=== PATIENT | female | born 1965 | race Caucasian/White ===

== ENCOUNTER → 2018-07-04 | Outpatient (CLI) | payer BC ==
[2018-07-04 11:15] LABS: EOS # 0.3 (0.04-0.40); EOS % 3.2 % (1.0-5.0); HEMATOCRIT 45.9 % (37.0-47.0); HEMOGLOBIN 14.7 g/dL (12.5-16.0); LYMPH# 2.3 (1.50-4.00); MEAN CELL VOLUME 94 fl (78-100); MEAN CORPUSCULAR HEMOGLOBIN 30 pg (27-31); MEAN CORPUSCULAR HGB CONC 32 g/dL (33-37); MEAN PLATELET VOLUME 10.2 fl (7.4-10.4); MONO # 0.8 (0.20-0.80); NEU # 6.1 (1.40-6.50); PLATELET COUNT 308 K/mm3 (130-400); RED BLOOD COUNT 4.88 M/mm3 (4.10-5.30); RED CELL DISTRIBUTION WIDTH 13.6 % (11.5-14.5); WHITE BLOOD COUNT 9.6 K/mm3 (4.8-10.8)
[2018-07-04 11:29] LABS: ALBUMIN 4.2 g/dL (3.5-5.0); CALCIUM 9.7 mg/dL (8.4-10.2); POTASSIUM 4.5 mmol/L (3.6-5.0); TOTAL BILIRUBIN 0.6 mg/dL (0.2-1.3); TOTAL PROTEIN 7.3 g/dL (6.3-8.2)
== END ==
LOC: LAB 10:45
PROVIDERS: Family Medicine
DX: Z01.419 Encounter for gynecological examination (general) (routine) without abnormal findings (principal)

== ENCOUNTER → 2020-12-23 | Outpatient (CLI) | payer BC ==
[2020-12-23 10:17] LABS: EOS # 0.1 (0.04-0.40); EOS % 1.6 % (1.0-5.0); HEMATOCRIT 44.9 % (37.0-47.0); MEAN CELL VOLUME 94 fl (78-100); MEAN CORPUSCULAR HEMOGLOBIN 29 pg (27-31); MEAN CORPUSCULAR HGB CONC 31 g/dL (33-37); MEAN PLATELET VOLUME 10.1 fl (7.4-10.4); MONO # 0.7 (0.20-0.80); NEU # 4.1 (1.40-6.50); PLATELET COUNT 299 K/mm3 (130-400); RED BLOOD COUNT 4.79 M/mm3 (4.10-5.30); RED CELL DISTRIBUTION WIDTH 13.2 % (11.5-14.5)
[2020-12-23 10:23] LABS: ALBUMIN 3.9 g/dL (3.5-5.0); POTASSIUM 4.2 mmol/L (3.5-5.1)
[2020-12-23 10:24] LABS: CALCIUM 9.2 mg/dL (8.3-10.5)
[2020-12-23 10:25] LABS: TOTAL PROTEIN 6.9 g/dL (6.4-8.3)
[2020-12-23 10:27] LABS: TOTAL BILIRUBIN 0.4 mg/dL (0.2-1.2)
== END ==
LOC: LAB 09:14
PROVIDERS: Family Medicine
DX: Z00.00 Encounter for general adult medical examination without abnormal findings (principal); E78.5 Hyperlipidemia, unspecified; E55.9 Vitamin D deficiency, unspecified

== ENCOUNTER → 2021-12-09 | Outpatient (CLI) | payer BC ==
[2021-12-09 14:31] LABS: BASO # 0.04 K/mm3 (0.02-0.10); EOS # 0.27 K/mm3 (0.04-0.40); EOS % 2.7 % (1.0-5.0); HEMATOCRIT 43.8 % (37.0-47.0); LYMPH# 2.32 K/mm3 (1.50-4.00); MEAN CELL VOLUME 95 fl (78-100); MEAN CORPUSCULAR HEMOGLOBIN 30 pg (27-31); MEAN CORPUSCULAR HGB CONC 32 g/dL (33-37); MEAN PLATELET VOLUME 9.5 fl (7.4-10.4); MONO # 0.64 K/mm3 (0.20-0.80); NEU # 6.59 K/mm3 (1.40-6.50); PLATELET COUNT 308 K/mm3 (130-400); RED CELL DISTRIBUTION WIDTH 13.1 % (11.5-14.5); WHITE BLOOD COUNT 9.9 K/mm3 (4.8-10.8)
[2021-12-09 14:46] LABS: POTASSIUM 4.2 mmol/L (3.5-5.1)
[2021-12-09 14:47] LABS: ALBUMIN 4.1 g/dL (3.5-5.0)
[2021-12-09 14:48] LABS: CALCIUM 9.6 mg/dL (8.3-10.5)
[2021-12-09 14:49] LABS: TOTAL PROTEIN 7.1 g/dL (6.4-8.3)
[2021-12-09 14:51] LABS: TOTAL BILIRUBIN 0.4 mg/dL (0.2-1.2)
== END ==
LOC: LAB 14:13
PROVIDERS: Family Medicine
DX: Z00.00 Encounter for general adult medical examination without abnormal findings (principal); E78.5 Hyperlipidemia, unspecified; E55.9 Vitamin D deficiency, unspecified; E66.9 Obesity, unspecified; R05.3 Chronic cough

== ENCOUNTER → 2021-12-10 | Outpatient (CLI) | payer BC | LOC: RAD 09:00 | DX: J84.10 Pulmonary fibrosis, unspecified (principal) | CPT/HCPCS: Q9967 ==

== ENCOUNTER → 2022-07-13 | Outpatient (CLI) | payer OTHER, BC ==
[2022-07-13 13:46] LABS: BASO # 0.03 K/mm3 (0.02-0.10); EOS # 0.28 K/mm3 (0.04-0.40); EOS % 3.3 % (1.0-5.0); HEMATOCRIT 38.6 % (37.0-47.0); HEMOGLOBIN 12.3 g/dL (12.5-16.0); LYMPH# 2.22 K/mm3 (1.50-4.00); MEAN CELL VOLUME 96 fl (78-100); MEAN CORPUSCULAR HEMOGLOBIN 31 pg (27-31); MEAN CORPUSCULAR HGB CONC 32 g/dL (33-37); MEAN PLATELET VOLUME 9.3 fl (7.4-10.4); MONO # 0.57 K/mm3 (0.20-0.80); NEU # 5.34 K/mm3 (1.40-6.50); PLATELET COUNT 309 K/mm3 (130-400); RED BLOOD COUNT 4.01 M/mm3 (4.10-5.30); RED CELL DISTRIBUTION WIDTH 13.2 % (11.5-14.5); WHITE BLOOD COUNT 8.5 K/mm3 (4.8-10.8)
[2022-07-13 13:55] LABS: ALBUMIN 3.9 g/dL (3.5-5.0)
[2022-07-13 13:56] LABS: POTASSIUM 4.2 mmol/L (3.5-5.1); SODIUM 141 mmol/L (136-145)
[2022-07-13 13:57] LABS: CALCIUM 9.1 mg/dL (8.3-10.5)
[2022-07-13 13:58] LABS: GLUCOSE 92 mg/dL (65-105); TOTAL PROTEIN 6.9 g/dL (6.4-8.3)
[2022-07-13 13:59] LABS: CARBON DIOXIDE 24 mmol/L (22-29)
[2022-07-13 14:00] LABS: TOTAL BILIRUBIN 0.5 mg/dL (0.2-1.2)
[2022-07-13 14:03] LABS: AST-SGOT 27 U/L (5-34)
[2022-07-13 14:05] LABS: ALT/SGPT 28 U/L (0-55)
[2022-07-13 14:12] LABS: TROPONIN-I < 0.030 ng/mL (<0.030)
== END ==
LOC: LAB 13:24
PROVIDERS: Nurse Practitioner Family
DX: S99.921A Unspecified injury of right foot, initial encounter (principal); R60.0 Localized edema; X58.XXXA Exposure to other specified factors, initial encounter

== ENCOUNTER 2023-04-19 08:00 | Outpatient (RCR) | payer BC | END 2023-05-19 | disposition home or self-care (01) | LOC: PT | DX: M25.562 Pain in left knee (principal) ==

== ENCOUNTER → 2024-10-08 | Outpatient (CLI) | payer BC ==
[~2024-10-08] VITALS: Ht 167.6 cm; Wt 104.3 kg
[~2024-10-08] MED LIST: Glucagon 1 MG VIAL IM ONE
== END ==
LOC: AMSURD 14:04
DX: K56.699 Other intestinal obstruction unspecified as to partial versus complete obstruction (principal)
CPT/HCPCS: J1610

== ENCOUNTER → 2024-11-06 | Outpatient (CLI) | payer BC ==
[~2024-11-06] MED LIST changes: +Gadoterate 20 ML VIAL IV ONE; -Glucagon 1 MG VIAL IM ONE
== END ==
LOC: RAD 13:04
DX: R22.41 Localized swelling, mass and lump, right lower limb (principal)
CPT/HCPCS: A9575